=== PATIENT | female | born 1950 | race Caucasian/White ===

== ENCOUNTER 2018-03-12 22:26 | Emergency (ER) | payer BC ==
[2018-03-12] MEDS ORDERED: Lidocaine 2% 20 ML MDV INFILT ONE (22:27)
[2018-03-12] MEDS ORDERED: Diphtheria,Pertussis(Acell),Tetanus Vaccine 0.5 ML SDV IM ONE (22:46)
--- NOTE | 2018-03-12 22:53 | EDM.PDOC ---
ED HPI GENERAL MEDICAL PROBLEM - General Chief Complaint: Laceration Stated Complaint: LACERATION FOREHEAD Time Seen by Provider: 03/12/18 22:30 Source of Information: Reports: Patient, Family History Limitations: Reports: No Limitations - History of Present Illness INITIAL COMMENTS - FREE TEXT/NARRATIVE: 67 y.o.w.mayte came with her neighbor to the ed after she was walking a dog, when the dog suddenly pulled and the pt hit her head on a door frame, noticing there is some bloof on her forehead. No LAC, No N/V/D or dizziness, no other acute medical issues. BP 169/69 temp 36.8 Pulse ox 100% on RA RR 18, Pulse 80 Onset Date: 03/12/18 Onset Time: 20:00 Duration: Hour(s): Location: Reports: Face Quality: Reports: Dull Severity: Mild Improves with: Reports: Rest Worsens with: Reports: Movement Context: Reports: Trauma (fell against a door, no LOC) Associated Symptoms: Reports: No Other Symptoms mid forehead Pain Score (Numeric/FACES): 1 - Related Data Allergies Allergy/AdvReac Type Severity Reaction Status Date / Time No Known Allergies Allergy Verified 03/12/18 22:39 Home Meds: Home Meds . [Unable to Verify Home Med List] 03/12/18 [History] Past Medical History Cardiovascular History: Reports: High Cholesterol, Hypertension ONLINE MEDIA DIRECTOR History: Reports: Psychiatric History: Reports: Depression Endocrine/Metabolic History: Reports: Diabetes, Type II, Hyperthyroidism Other Endocrine/Metabolic History: goiter Social & Family History - Family History Family Medical History: Noncontributory - Tobacco Use Smoking Status *Q: Never Smoker - Caffeine Use Caffeine Use: Reports: Coffee, Soda, Tea - Recreational Drug Use Recreational Drug Use: No ED ROS GENERAL - Review of Systems Review Of Systems: See Below Constitutional: Reports: No Symptoms HEENT: Reports: Other (LAC mid forehead) Respiratory: Reports: No Symptoms Cardiovascular: Reports: No Symptoms Endocrine: Reports: No Symptoms GI/Abdominal: Reports: No Symptoms : Reports: No Symptoms Musculoskeletal: Reports: No Symptoms Skin: Reports: Wound (LAC mid forehead) Neurological: Reports: No Symptoms Psychiatric: Reports: No Symptoms Hematologic/Lymphatic: Reports: No Symptoms Immunologic: Reports: No Symptoms ED EXAM, SKIN/RASH Exam: See Below Exam Limited By: No Limitations General Appearance: Alert, WD/WN, Mild Distress Eye Exam: Bilateral Eye: Normal Inspection Ears: Normal External Exam, Normal Canal Nose: Normal Inspection, Normal Mucosa Throat/Mouth: Normal Inspection, Normal Lips, Normal Voice, No Airway Compromise Head: Normocephalic, Other (2.5 cm LAC mid forehead) Neck: Normal Inspection, Supple, Non-Tender, Full Range of Motion Respiratory/Chest: No Respiratory Distress, Lungs Clear, Normal Breath Sounds, No Accessory Muscle Use, Chest Non-Tender Cardiovascular: Normal Peripheral Pulses, Regular Rate, Rhythm, No Edema, No Gallop, No JVD, No Murmur, No Rub GI/Abdominal: Normal Bowel Sounds, Soft, Non-Tender, No Organomegaly, No Distention, No Abnormal Bruit (Female) Exam: Deferred Rectal (Female) Exam: Deferred Back Exam: Normal Inspection, Full Range of Motion Extremities: Normal Inspection, Normal Range of Motion, Non-Tender, No Pedal Edema Neurological: Alert, Oriented, CN II-XII Intact, Normal Cognition, Normal Gait, No Motor/Sensory Deficits Psychiatric: Normal Affect, Normal Mood Skin: Warm, Dry, Normal Color, No Rash, Wound/Incision (LAC mid forehead) Location, Skin: Face Lymphatic: No Adenopathy ED SKIN PROCEDURES - Laceration/Wound Repair Middle Forehead Lac/Wound length In cm: 2.5 Appearance: Linear, Clean Distal NVT: Neuro & Vascular Intact, No Tendon Injury Anesthetic Type: Local Local Anesthesia - Lidocaine (Xylocaine): 2% Plain Local Anesthetic Volume: 3cc Skin Prep: Providone-Iodine (Betadine) Saline Irrigation (cc's): 5 Exploration/Debridement/Repair: Wound Explored, In a Bloodless Field, Explored to Base Suture Size: 4-0 # of Sutures: 3 Suture Type: Interrupted, Other (ethilon) Sterile Dressing Applied: Nurse Tetanus Status Addressed: Yes (TD given today) Complications: No Course - Vital Signs Text/Narrative:: 67 y.o.w.f came with her neighbor to the ed after she was walking a dog, when the dog suddenly pulled and the pt hit her head on a door frame, noticing there is some bloof on her forehead. No LAC, No N/V/D or dizziness, no other acute medical issues. BP 169/69 temp 36.8 Pulse ox 100% on RA RR 18, Pulse 80 PE: WNWD W F with a LAC on her forehead, not active bleeding Procedure: Please see note above Impressio: Laceration karan forehead, repaired in the ED Tx: Wound care, NEDA wrap Reexam: Improved Plan: D/C with instructions Last Recorded V/S: Last Vital Signs Temp 36.4 C 03/12/18 23:00 Pulse 80 03/12/18 23:00 Resp 15 03/12/18 23:00 BP 148/65 H 03/12/18 23:00 Pulse Ox 100 03/12/18 23:00 - Orders/Labs/Meds Orders: Active Orders 24 hr Category Date Time Status Vaccines to be Administered [RC] PER UNIT ROUTINE Care 03/12/18 22:46 Active Meds: Medications Discontinued Medications Generic Name Dose Route Start Last Admin Trade Name Freq PRN Reason Stop Dose Admin Diphtheria/Tetanus/Acell Pertussis 0.5 ml 03/12/18 22:46 03/12/18 22:57 Adacel IM 03/12/18 22:47 0.5 ml .ONCE ONE Administration Departure - Departure Time of Disposition: 22:54 Disposition: Home, Self-Care 01 Condition: Good Clinical Impression: Laceration - Discharge Information Instructions: Laceration Care, Adult, Sutured Wound Care, [id number] Referrals: Selina Montiel DIRECTOR OF ACCREDITATION [Primary Care Provider] - Forms: ED Department Discharge Additional Instructions: Please apply pressure to forehead for 24 hours, please apply neosporine to wound twice daily for 5 days, wound check in 2 days. suture removal in 7-10 days. Please come back to the ed if your symptoms get worse acutely. - My Orders Last 24 Hours: My Active Orders 03/12/18 22:46 Vaccines to be Administered [RC] PER UNIT ROUTINE - Assessment/Plan Last 24 Hours: My Active Orders 03/12/18 22:46 Vaccines to be Administered [RC] PER UNIT ROUTINE
== END 2018-03-12 23:08 | disposition home or self-care (01) ==
LOC: FB.ED 22:26
DX: S01.81XA Laceration without foreign body of other part of head, initial encounter (principal); E11.9 Type 2 diabetes mellitus without complications; Z23 Encounter for immunization; W22.8XXA Striking against or struck by other objects, initial encounter; Y93.K1 Activity, walking an animal
CPT/HCPCS: 12001; 12011; 90471; 90472; 90715; 99282